=== PATIENT | female | born 2000 ===

== ENCOUNTER 2023-07-03 11:40 | Outpatient (CLI) | payer OTHER | END 2023-07-03 11:43 | disposition home or self-care (01) | LOC: PRENATAL 11:40 | PROVIDERS: ATTEND Obstetrics & Gynecology Maternal & Fetal Medicine | DX: O35.9XX0 Maternal care for (suspected) fetal abnormality and damage, unspecified, not applicable or unspecified (principal); O35.3XX0 Maternal care for (suspected) damage to fetus from viral disease in mother, not applicable or unspecified; O44.00 Complete placenta previa NOS or without hemorrhage, unspecified trimester; O99.891 Other specified diseases and conditions complicating pregnancy; O34.219 Maternal care for unspecified type scar from previous cesarean delivery; O36.5990 Maternal care for other known or suspected poor fetal growth, unspecified trimester, not applicable or unspecified; Z3A.22 22 weeks gestation of pregnancy ==